=== PATIENT | female | born 1960 | race African-American/Black ===

== ENCOUNTER 2017-05-10 11:47 | Emergency (ER) | payer MEDICAID, OTHER ==
[~2017-05-10] VITALS: Ht 167.6 cm; Wt 83.0 kg
[2017-05-10] MEDS ORDERED: IBUPROFEN 800MG TABLET PO ONE (13:00)
[2017-05-10 13:08] VITALS: BP 144/78
== END 2017-05-10 14:04 | disposition home or self-care (01) ==
LOC: ER 13:03
DX: F43.8 Other reactions to severe stress (principal); M54.2 Cervicalgia; E11.9 Type 2 diabetes mellitus without complications; I10 Essential (primary) hypertension; Z90.710 Acquired absence of both cervix and uterus
CPT/HCPCS: 99282